=== PATIENT | female | born 1980 | race Caucasian/White ===

== ENCOUNTER → 2024-07-20 17:30 | Outpatient (REF) | payer OTHER, SELFPAY | LOC: RAD 17:30 | PROVIDERS: ATTENDING PHYSICIAN Surgery Trauma Surgery | DX: K42.9 Umbilical hernia without obstruction or gangrene (principal) | CPT/HCPCS: 74177; Q9967 ==

== ENCOUNTER 2025-03-21 17:35 | Emergency (ER) | payer OTHER, SELFPAY ==
[2025-03-21 17:39] VITALS: BP 162/86
[2025-03-21 21:10] LABS: Hematocrit 40.3 % (37.0-47.0); Hemoglobin 13.1 g/dL (12.0-16.0); Mean Corp Hgb Conc. 32.5 g/dL (33.0-37.0); Mean Corpuscular Volume 78.4 fL (81.0-99.0); Nucleated Red Blood Cells % 0 %; Platelet Count 336 10^3/uL (130-400); Red Cell Dist. Width 14.8 % (11.5-14.5)
[2025-03-21 21:19] LABS: INR 0.92; PT 12.9 Sec (11.4-14.6)
[2025-03-21 21:20] LABS: APTT 28.4 Sec (23.4-35.0)
[2025-03-21 21:28] LABS: AST (SGOT) 16 U/L (14-36); Albumin 4.3 g/dl (3.5-5.0); Alkaline Phosphatase 74 U/L (38-126); Blood Urea Nitrogen 13 mg/dl (7-17); Calcium 9.2 mg/dl (8.4-10.2); Carbon Dioxide 21 mmol/L (22-30); Chloride 105 mmol/L (98-107); Glucose 96 mg/dl (70-99); Potassium 4.1 mmol/L (3.5-5.1); Sodium 135 mmol/L (135-145); Total Protein 7.2 g/dl (6.3-8.2); eGFR > 60.00
[2025-03-21 21:29] LABS: ALT (SGPT) 19 U/L (0-35)
--- NOTE | 2025-03-21 22:18 | ED.GENMED ---
History of Present Illness
General
Chief Complaint: Facial Problem
Source: patient
Exam Limitations: none
Time Seen by Provider: 03/21/25 18:56
Nursing documentation reviewed up to this point in time: agreed with
History of Present Illness
History of Present Illness:
Pleasant 44-year-old female presents with left-sided facial tingling and left ear pain. She states that this began with left-sided dental pain. She does have a history of trigeminal neuralgia on the right but states that this is the first time she
has had symptoms on the left. Patient denies fever, chills, nausea or vomiting. Denies weakness or numbness. Reports no paresthesias but does report some 'tingling '.
Review of Systems
Review of Systems
Allergies reviewed?: Yes
All Other Systems: ROS reviewed and negative except as documented in HPI and ROS
Constitutional: Reports no symptoms
EENT: Reports mouth pain
Respiratory: Reports no symptoms
Cardiac: Reports no symptoms
ABD/GI: Reports no symptoms
: Reports no symptoms
Musculoskeletal: Reports no symptoms
Skin: Reports no symptoms
Neurological: Reports no symptoms
Endocrine: Reports no symptoms
Hematologic/Lymphatic: Reports no symptoms
Psychiatric: Reports no symptoms
Phy Exam
General Physical Exam
General Presentation: well appearing and mild distress
General age: appears stated age
General Skin: warm
General Habitus: normal
General Mental: alert
ENT Exam
ENT Exam: EOMI and other (No evidence of abscess noted)
Cardiovascular Exam
Cardiovascular Exam: regular rate/rhythm
Neurological Exam
Neurological Exam: alert and oriented x3
Musculoskeletal Exam
Musculoskeletal Exam: full ROM
Skin Exam
Skin Exam: normal color and warm/dry
Psychiatric Exam
Psychiatric Exam: normal mood/affect
Course
Orders/Labs/Results
Orders:
Orders
03/21/25 21:01
Complete Blood Count/With Diff Urgent
Comprehensive Metabolic Panel Urgent
Erythrocyte Sed Rate Urgent
PTT Urgent
Prothrombin Time Urgent
03/21/25 21:32
CT Facial Bones W/o Iv Contras Urgent
Comment:
Reason For Exam: left facial pain, elev WBC
03/21/25 22:17
Amoxicillin 875 mg/Clav 125 mg [Augmentin 875 mg/125 mg] 1 tablet PO NOW STA
Abnormal Lab Results
03/21/25
21:01
WBC 16.3 H 10^3/uL
(4.8-10.8)
MCV 78.4 L fL
(81.0-99.0)
MCH 25.5 L pg
(27.0-31.0)
MCHC 32.5 L g/dL
(33.0-37.0)
RDW 14.8 H %
(11.5-14.5)
Abs Immat Gran (auto) 0.1 H 10^3/uL
(0-0.05)
Absolute Neuts (auto) 11.1 H 10^3/uL
(1.4-6.5)
Absolute Lymphs (auto) 3.8 H 10^3/uL
(1.2-3.4)
Absolute Monos (auto) 0.9 H 10^3/uL
(0.1-0.6)
Immature Gran % 0.6 H %
(0-0.5)
ESR 32 H mm/hour
(0-20)
Carbon Dioxide 21 L mmol/L
(22-30)
03/21/25 21:01
03/21/25 21:01
Vital Signs
Initial and Last Documented VS:
Initial Vital Signs
Temp Pulse Resp BP Pulse Ox
98.2 F 103 18 162/86 99
03/21/25 17:39 03/21/25 17:39 03/21/25 17:39 03/21/25 17:39 03/21/25 17:39
Last Documented Vital Signs
Temp Pulse Resp BP Pulse Ox
98.2 F 103 20 162/86 99
03/21/25 17:39 03/21/25 17:39 03/21/25 20:40 03/21/25 17:39 03/21/25 22:21
*Radiology
Radiology exam reviewed: radiology read reviewed
*Pulse Oximetry
SaO2: 99
Oxygen Mode of Delivery: Room air
Patient hypoxic: no
*Critical Care Note
Total Time (30-74mins, 75-104mins- exclusive of procedures): Not Applicable
ED Attending Note
-
Portions of this chart may have been created with voice recognition software.� Occasional wrong word or��sound alike� substitutions may have occurred due to the inherent limitations of voice recognition software.
Discharge Plan
Departure
Patient Disposition: Home (Routine Discharge)
Date of Disposition: 03/21/25
Time of Disposition: 22:20
Patient with high blood pressure during this ER visit?: Yes
Discharge Problem:
Pain, dental, Facial pain
Instructions: Dental pain - ED discharge instructions, BLOOD PRESSURE
Prescriptions:
New
amoxicillin-pot clavulanate 875-125 mg tablet
1 tab PO BID Qty: 20 0RF
No Action
amlodipine 5 mg Tablet
5 mg PO DAILY
losartan-hydrochlorothiazide 50-12.5 mg Tablet
1 tab PO DAILY
polyethylene glycol 3350 [Miralax] 17 gram Powder In Packet
17 g PO DAILY 5 Days Qty: 30 0RF
Rx Instructions:
MIXED IN 4 OUNCES OF JUICE OR WATER FOR CONSTIPATION EVERY DAY.
for 5 days
ibuprofen 800 mg Tablet
800 mg PO Q8HPRN PRN (Reason: PAIN) Qty: 30 0RF
oxycodone-acetaminophen [Percocet] 5-325 mg Tablet
1 tab PO Q6HPRN PRN (Reason: PAIN) Qty: 14 0RF
docusate sodium [Colace] 100 mg Capsule
100 mg PO DAILY Qty: 10 0RF
Rx Instructions:
TAKE TWICE A DAY FOR 5 DAYS
ondansetron 4 mg Tablet,Disintegrating
4 mg PO Q8H PRN (Reason: NAUSEA) Qty: 14 0RF
oxycodone [OxyContin] 10 mg tablet,oral only,ext.rel.12 hr
10 mg PO BID Qty: 7 0RF
Referrals:
Tiffani Francis, [Family Provider, Family Practice]
Activity Restrictions/Additional Instructions:
Please take your antibiotics completely as directed.
Follow-up with your dentist as discussed. If you cannot get an appointment I have included some dental clinics. The list may not be exactly up-to-date.
Reduced-Fee Dental Clinics
[facility]: [phone] call for appt. No walk ins
[facility]:
[facility]: [phone]
[facility] [phone]
[facility]: . No walk ins
[facility]: [phone]
[facility]: [phone]
[facility]: 1-
[facility]: [phone]
[facility] [place] [facility]: [phone]
[facility], Free for uninsured
[facility]: [phone]
[facility] ex [address] [facility] [place] [address]
[facility]:
[facility]:
Interventions
Interventions:
*Risk Screen - Suicide Last Done: 03/21/25 17:39
*Neglect/Abuse Screening Last Done: 03/21/25 17:39
*ED- Fall Risk Assessment Last Done: 03/21/25 20:42
*ED COVID-19 Vaccine History Last Done: 03/21/25 20:42
*Nursing Disposition Last Done: 03/21/25 23:49
ED- Neurological Assessment Last Done: 03/21/25 20:40
ED-Skin Assessment Last Done: 03/21/25 20:40
Discharge Date and Time
Discharge Date/Time: 03/21/25 23:50
Print Language: YORUBA
[2025-03-21] MEDS: AUGMENTIN 875 MG/125 MG 1 TABLET PO (22:30)
== END 2025-03-21 23:50 | disposition home or self-care (01) ==
LOC: EMR 17:35
PROVIDERS: EMERGENCY PHYSICIAN Student in an Organized Health Care Education/Training Program; FAMILY PHYSICIAN Family Medicine
DX: K08.89 Other specified disorders of teeth and supporting structures (principal); R20.2 Paresthesia of skin; H92.02 Otalgia, left ear; R03.0 Elevated blood-pressure reading, without diagnosis of hypertension; G50.0 Trigeminal neuralgia; D50.9 Iron deficiency anemia, unspecified; Z90.49 Acquired absence of other specified parts of digestive tract
CPT/HCPCS: 99284; 70486; 80053; 85025; 85610; 85652; 85730